=== PATIENT | female | born 1980 | race Caucasian/White ===

== ENCOUNTER 2021-06-15 17:56 | Emergency (ER) | payer BC ==
[~2021-06-15] VITALS: Ht 157.5 cm; Wt 90.7 kg
[2021-06-15 18:03] VITALS: BP_SYST 147
[2021-06-15] MEDS ORDERED: LORazepam 2 MG/ML VIAL IM ONE (18:15)
[2021-06-15 18:59] LABS: BASOPHILS # (AUTO) 0.1 K/uL (0.0-0.2); EOSINOPHILS # (AUTO) 0.3 K/uL (0.0-0.4); HEMOGLOBIN 13.6 g/dL (12.0-16.0); LYMPHOCYTES # (AUTO) 2.8 K/uL (1.0-5.5); WHITE BLOOD COUNT (AUTO) 8.5 K/uL (4.8-10.8)
[2021-06-15 19:08] LABS: EOSINOPHILS % (AUTO) 3.7 % (0.0-4.0); HEMATOCRIT 41.8 % (36-48); LYMPHOCYTES % (AUTO) 33.1 % (20.5-51.5); MEAN CORPUSCULAR HEMOGLOBIN 27 pg (27-31); MEAN CORPUSCULAR HGB CONC 33 % (32-36); MEAN CORPUSCULAR VOLUME 82 fL (79.0-98.0); MONOCYTES # (AUTO) 0.6 K/uL (0.0-1.0); MONOCYTES % (AUTO) 6.4 % (1.7-9.3); NEUTROPHILS # (AUTO) 4.8 K/uL (1.8-7.7); NEUTROPHILS % (AUTO) 55.8 % (40.0-70.0); PLATELET COUNT (AUTO) 255 K/uL (130-430); RED BLOOD CELL COUNT(AUTO) 5.08 MIL/uL (4.2-6.2); RED CELL DISTRIBUTION WIDTH 14.7 % (9.0-15.0)
[2021-06-15 19:23] LABS: CALCIUM 8.6 mg/dL (8.4-11.0); CREATININE 0.71 mg/dL (0.55-1.30)
[2021-06-15 19:29] LABS: POTASSIUM 2.9 mmol/L (3.5-5.1)
[2021-06-15 19:31] LABS: ALBUMIN 3.2 g/dL (3.4-4.8)
[2021-06-15] MEDS ORDERED: MAGNESIUM OXIDE 400 MG TABLET PO ONE (19:45)
[2021-06-15] MEDS ORDERED: POTASSIUM CHLORIDE 20 MEQ TAB.PRT.SR PO ONE (19:45)
[2021-06-15 19:52] LABS: TOTAL BILIRUBIN 0.2 mg/dL (0.0-1.0)
[2021-06-15] MEDS ORDERED: POTASSIUM CHLORIDE 20 MEQ TAB.PRT.SR ONE (20:45)
[2021-06-15] MEDS ORDERED: MAGNESIUM OXIDE 400 MG TABLET ONE (21:21)
[2021-06-15 21:55] VITALS: BP_SYST 114
== END 2021-06-15 21:55 | disposition home or self-care (01) ==
LOC: SED 17:56
DX: R06.4 Hyperventilation (principal); E87.6 Hypokalemia; F41.9 Anxiety disorder, unspecified; I10 Essential (primary) hypertension
CPT/HCPCS: 36415; 70450; 71045; 76376; 80053; 85025; 93005; 96372; 99285; J2060